=== PATIENT | male | born 1960 | race Caucasian/White ===

== ENCOUNTER 2016-09-05 08:00 | Emergency (ER) | payer SELFPAY ==
[~2016-09-05] VITALS: Ht 170.2 cm; Wt 74.2 kg
[2016-09-05 09:00] LABS: ADD MIUA? YES; BILIRUBIN NEGATIVE; BLOOD SMALL; COLOR AMBER ((YELLOW)); GLUCOSE (STRIP) NEGATIVE; KETONES 5; LEUKOCYTES NEGATIVE; NITRITE NEGATIVE; PROTEIN (STRIP) 30; SPECIFIC GRAVITY 1.028 (1.000-1.030); UROBILINOGEN 0.2 MG/DL (0.2-1.0)
[2016-09-05 09:16] LABS: EPITHELIAL CELLS RARE /HPF; HYALINE CASTS 0-5 /LPF; MUCUS 4+ /LPF; UCUL ADDED? NO; WHITE BLOOD CELLS 0-5 /HPF (0-5)
[2016-09-05 09:30] LABS: BACTERIA 1+ /HPF; CRYSTALS PRESENT; RED BLOOD CELLS 0-5 /HPF (0-5)
[2016-09-05 09:31] LABS: AMORPHOUS URATES CRYSTALS RARE
[2016-09-05] MEDS ORDERED: PERCOCET 5/31 TABLET PO (10:17)
[2016-09-05 11:17] VITALS: BP 108/78
== END 2016-09-05 11:18 | disposition home or self-care (01) ==
LOC: EME 08:00
PROVIDERS: Emergency Medicine
DX: S22.32XA Fracture of one rib, left side, initial encounter for closed fracture (principal); W01.198A Fall on same level from slipping, tripping and stumbling with subsequent striking against other object, initial encounter
CPT/HCPCS: 71101; 81003; 99281; 99284

== ENCOUNTER 2016-09-09 11:50 | Emergency (ER) | payer OTHER ==
[~2016-09-09] VITALS: Ht 170.2 cm; Wt 74.1 kg
[~2016-09-09 11:50] MED LIST: PERCOCET 5/31 TABLET PO
[2016-09-09] MEDS ORDERED: FLEXERIL10 MG PO (14:27)
[2016-09-09] MEDS ORDERED: ULTRAM50 MG PO (14:28)
[2016-09-09 14:43] VITALS: BP 125/66
== END 2016-09-09 14:44 | disposition home or self-care (01) ==
LOC: RME 11:50 → EME 11:50 → RME 14:44
DX: S20.212D Contusion of left front wall of thorax, subsequent encounter (principal); S22.32XD Fracture of one rib, left side, subsequent encounter for fracture with routine healing; W07.XXXD Fall from chair, subsequent encounter; F17.200 Nicotine dependence, unspecified, uncomplicated
CPT/HCPCS: 71020; 99281; 99284